=== PATIENT | female | born 1965 | race Hispanic/Latino ===

== ENCOUNTER → 2018-10-23 | Day surgery (SDC) | payer OTHER ==
[~2018-10-23] MED LIST: FENTANYL CITRATE/PF 100MCG/2 ML INJ ONE; LOSARTAN-HCTZ1 EACH PO; MIDAZOLAM HCL 2 MG/2 ML VIAL ONE; PROPOFOL IV EMULSION 10 MG/ML 50 ML VIAL ONE; TRAZODONE HCL50 MG PO
--- OUTSIDE RECORDS SUMMARY | 2018-10-23 05:53 | XMS REPORT ---
Author Author [facility] Organization [employer] Address Unknown Phone Unavailable Care Team Providers Care Project Builder Name Role Phone [facility] Unavailable Allergies, Adverse Reactions, Alerts Substance Reaction Event Type N.K.D.A. Info Not Available Non Drug Allergy Encounters Encounter Location Date [facility] Apr 09, 2014 Problems Problem Type Condition ICD-9 Code Onset Dates Condition Status Problem Pre-syncope 780.2 Active Problem Palpitations 785.1 Active Problem Chest Pain 786.50 Active Assessment Palpitations 785.1 Active Assessment Chest Pain 786.50 Active Assessment Pre-syncope 780.2 Active Medications Medication Code System Code Instructions Start Date End Date Status Dosage leflunomide MULTUM 01615 10 mg orally once a day Active 1 tab(s) trazodone MULTUM 24622 50 mg orally prn Active 1 tab(s) diclofenac MULTUM 99122 sodium 75 mg orally daily Active 1 tab(s) Social History Social History Element Qualifiers Date Reported Caffeine: . coffee daily 3-4cups Apr 09, 2014 Exercise: none. Apr 09, 2014 Recreational drug use: no. Apr 09, 2014 Chewing tobacco: no. Apr 09, 2014 Tobacco Use: . Status: Never Smoker Apr 09, 2014 Alcohol: socially. Liquor, Beer, Wine Apr 09, 2014 Occupation: . [employer] Apr 09, 2014 Family history Qualifier Description Comment Date Reported Father Comment not available Apr 09, 2014 Mother Comment not available Apr 09, 2014 Sibling 1 Comment not available Apr 09, 2014 Vital Signs Date/Time: Apr 09, 2014 Blood Pressure Systolic 138 mm Hg Height 67 in Blood Pressure Diastolic 98 mm Hg Summary Purpose [employer] Submission
--- OUTSIDE RECORDS SUMMARY | 2018-10-23 05:53 | XMS REPORT | Summary of Care ---
Author Author [facility] [place] [facility] [place] Address Unknown Phone Unavailable Encounter HQ Encntr_alias(FIN) [id number] Date(s): 03/31/16 - 03/31/16 [facility] [place] [address] [place] [address] [phone] Discharge Disposition: Home or Self Care Attending Physician: Darrel Barrios MD Vital Signs No data available for this section Problem List No data available for this section Allergies, Adverse Reactions, Alerts No data available for this section Medications No data available for this section Results No data available for this section Immunizations No data available for this section Procedures No data available for this section Social History No data available for this section Assessment and Plan No data available for this section
--- OUTSIDE RECORDS SUMMARY | 2018-10-23 05:53 | XMS REPORT | Continuity of Care Document ---
Author Author Michael marcann Organization Interface Address Unknown Phone Unavailable Problems Problem Status Onset Date Classification Date Reported Comments Source COLON / MAC Active 03/07/2018 [facility] M54.9 M54.6 M25.561 Active 02/06/2018 [facility] M54.9 - DORSALGIA, UNSPECIFIED M54.6 - P Active 02/04/2018 [facility] M25.561 - PAIN IN RIGHT KNEE Active 02/04/2018 [facility] Li Pain in right shoulder 11/06/2017 02/07/2018 [facility] Li M75.101 - UNSP ROTATR-CUFF TEAR/RUPTR OF Active 08/10/2017 [facility] M75.101 Active 08/10/2017 [facility] RIGHT SHOULDER Active 08/04/2017 [facility] Li RT KNEE Active 05/27/2017 [facility] Cecille RIGHT ANKLE/HEEL Active 12/07/2016 [facility] Li DX: ACHILLES RUPTURE Active 11/16/2016 [facility] Z00 - ENCNTR FOR GENERAL EXAM W/O CO Active 03/31/2016 [facility] KNEE RT AND CERVICAL LUMBAR Active 08/27/2000 [facility] Cecille M25.521 M25.522 M25.541 M25.542 Active 08/27/[address] [facility] Pre-syncope Active Problem 07/31/2014 [facility] Palpitations Active Problem 07/31/2014 [facility] Chest Pain Active Problem 07/31/2014 [facility] HTN (<span ID="[id number]">Confirmed</span>) Active Problem 03/11/2018 [facility] Arthritis Resolved Problem 03/11/2018 [facility] Li Jamil Body mass index 29.0-29.9, adult(<span ID="[id number]">Confirmed</span>) Active Problem 03/11/2018 [facility] Other intervertebral disc degeneration, thoracic region 01/04/2018 [facility] [place] Stiffness of right shoulder, not elsewhere classified 02/07/2018 [facility] [place] Muscle weakness 02/07/2018 [facility] [place] Abnormal posture 02/07/2018 [facility] [place] UNSP ROTATR-CUFF TEAR/RUPTR OF RIGHT NIKOS Active [facility] Medications Medication Details Route Status Patient Instructions Ordering Provider Order Date Source Sodium Chloride 0.9% IV 1000 mL 1,000 mL, Rate: 25 ml/hr, Infuse over: 40 hr, Route: IV, Dosing Weight 96.818 kg, Total Volume: 1,000, Start date: 03/08/18 11:00:00 CDT, Duration: 30 day, Stop date: 04/07/18 10:59:00 CDT, 2.16, m2 Inactive 03/08/2018 [facility] Calcium Chloride 0.0014 MEQ/ML / Potassium Chloride 0.004 MEQ/ML / Sodium Chloride 0.103 MEQ/ML / Sodium Lactate 0.028 MEQ/ML Injectable Solution 1,000 mL, Rate: 25 ml/hr, Infuse over: 40 hr, Route: IV, Dosing Weight 96.818 kg, Total Volume: 1,000, Start date: 03/08/18 11:00:00 CDT, Duration: 30 day, Stop date: 04/07/18 10:59:00 CDT, 2.16, m2 Inactive 03/08/2018 [place] 200 ACTUAT Albuterol 0.09 MG/ACTUAT Metered Dose Inhaler [ProAir HFA] 2 puff, INHALER, Q4H, PRN for wheezing, # 8.5 gm, 0 Refill(s), Pharmacy: [facility]/pharmacy #[id number] Active 09/10/2017 [facility] benzonatate 200 MG Oral Capsule [Tessalon] 200 mg=1 cap, PO, TID, X 10 day, # 30 cap, 0 Refill(s), Pharmacy: [facility]/pharmacy #[id number] No Longer Active 09/10/2017 [facility] Prednisone 50 MG Oral Tablet 50 mg=1 tab, PO, Daily, X 5 day, # 5 tab, 0 Refill(s), Pharmacy: [facility]/pharmacy #[id number] No Longer Active 09/10/2017 [facility] azithromycin 250 mg oral tablet See Instructions, Take 2 tablets by mouth the first day then 1 tablet by mouth daily on days 2-5., X 5 day, # 6 tab, 0 Refill(s), Pharmacy: [facility]/pharmacy #[id number] No Longer Active 09/10/2017 [facility] Dexamethasone 8 mg, Route: IM, ONCE, Dosing Weight 89.591, kg, Priority: STAT, Start date: 09/10/17 15:04:00 CUSTOMER SERVICES SUPERVISOR, Stop date: 09/10/17 15:04:00 CUSTOMER SERVICES SUPERVISOR Inactive 09/10/2017 [facility] leflunomide 1 tab(s) orally Active 10 mg orally once a day [facility] trazodone 1 tab(s) orally Active 50 mg orally prn [facility] diclofenac 1 tab(s) orally Active sodium 75 mg orally daily [facility] Allergies, Adverse Reactions, Alerts Substance Category Reaction Severity Reaction type Status Date Reported Comments Source N.K.D.A. Adverse Reaction Info Not Available Adverse Reaction Active 04/09/2014 [facility] codeine Assertion Drug allergy Active [facility] Immunizations Immunization Date Given Site Status Last Updated Comments Source Results Order Name Results Value Reference Range Date Interpretation Comments Source Thyroid US Thyroid US PROCEDURE: THYROID ULTRASOUND INDICATION: Nontoxic goiter, unspecified - . COMPARISON: None. TECHNIQUE: Sonographic evaluation of the thyroid gland performed using high resolution B-mode and Doppler. FINDINGS: The right lobe measures 4.8 x 1.7 x 1.7 cm. The left lobe measures 5 x 1.8 x 1.5 cm. The isthmus is normal. There are multiple benign-appearing subcentimeter hypoechoic lesions on both sides. Nodule 1: Location: Inferior left gland Size: 9 x 8 x 9 mm Composition: Mixed cystic and solid (1 point). Echogenicity: Hypoechoic (2 points). Shape: Wider than tall (0 points). Margins: Ill-defined (0 points). Echogenic foci: Absent (0 points). Other: None. ACR TI-RADS Score: TR3 - Mildly suspicious (total 3 points). -- ACR recommendation:=2.5 cm FNA;=1.5 cm f/u in 1, 3, and 5 years; <1.5 cm no f/u or FNA. Nodule 2: Location: Mid left gland Size: 1.4 x 1 x 1.1 cm Composition: Mixed cystic and solid (1 point). Echogenicity: Hypoechoic (2 points). Shape: Wider than tall (0 points). Margins: Ill-defined (0 points). Echogenic foci: Absent (0 points). Other: None. ACR TI-RADS Score: TR3 - Mildly suspicious (total 3 points). -- ACR recommendation:=2.5 cm FNA;=1.5 cm f/u in 1, 3, and 5 years; <1.5 cm no f/u or FNA. IMPRESSION: Nonspecific bilateral thyroid lesions, largest as detailed above. SL: [id number] 07/02/2018 - - Read by: Antelmo Matthews MD Dictated Date/time: 07/02/18 16:00 Electronically Signed by: Antelmo Matthews MD 07/02/18 16:12 FINAL REPORT [facility] Breast Mammo Scrn LISA incl CAD MA Breast Mammo Scrn LISA incl CAD MA BILATERAL DIGITAL SCREENING MAMMOGRAM WITH CAD: 07/02/2018 CLINICAL: Screening Mammogram/Z12.31. Current study was evaluated with a Computer Aided Detection (CAD) system. COMPARISON:Comparison is made to exams dated: 07/05/2010 mammogram and 06/29/2008 mammogram - [facility]. TECHNIQUE: Mammographic views were obtained using digital acquisition. [employer], version 8.1 was utilized for computer aided detection. FINDINGS: There are scattered fibroglandular densities in both breasts. There are benign calcifications in the left breast. There also are post operative findings in both breasts. No suspicious masses, clusters of microcalcifications or areas of architectural distortion are demonstrated within either breast. There has been no significant interval change. IMPRESSION: BENIGN RECOMMENDATION:There is no mammographic evidence of malignancy. A 1 year screening mammogram is recommended.(07/03/2019) Professional services are provided by the [facility]. Aba To D.O., mdl/warren:07/02/2018 14:52:47 Pattern Assembler(s): Nilsa Polo [facility] letter sent: BI-RADS 1/2 Mammogram BI-RADS: 2 Benign 07/02/2018 - - Read by: Aba To DO Dictated Date/time: 07/02/18 14:52 Electronically Signed by: Zuleika Aba Michele DO 07/02/18 14:52 FINAL REPORT [facility] Knee wo contrast MRI Knee wo contrast MRI EXAM: Right knee wo contrast MRI INDICATION: M25.561 Pain in right knee - M25.561 Pain in right knee COMPARISON: Plain films of the bilateral knees from 01/29/2014 TECHNIQUE: Multiplanar, multisequence magnetic resonance imaging of the right knee was performed without the administration of intravenous gadolinium contrast. FINDINGS: Intercondylar notch: Anterior cruciate ligament and posterior cruciate ligament are intact. Medial compartment: Mild intrasubstance degeneration of the medial meniscus posterior body is seen without discrete tear. No focal chondral defect is present. Medial collateral ligament is intact. Lateral compartment: No meniscal tear or chondral defect is seen. Lateral collateral ligament complex is intact. Posterolateral corner structures are intact. Patellofemoral compartment: Diffuse moderate to high-grade partial-thickness cartilage fissures throughout the lateral patellar facet and patellar apex are seen with mild underlying cystic changes along the lateral patellar facet. Low- grade chondrosis along the apex of the trochlea is seen. Lateral patellar tilt is noted. Tibial tubercle-trochlear groove distance of 1.4 cm is noted. The medial and lateral patellofemoral retinaculum are intact. Extensor mechanism: Quadriceps and patellar tendons are intact. Other findings: Physiologic joint fluid is seen. No acute bony fracture or stress-related marrow edema is present. IMPRESSION: 1. 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 2. Mild intrasubstance degeneration of the medial meniscus posterior body without discrete tear. SL: CARIN 02/08/2018 - - Read by: Bay Pryor MD Dictated Date/time: 02/08/18 15:26 Electronically Signed by: Bay Pryor MD 02/08/18 15:36 FINAL REPORT [facility] Spine Thoracic wo contrast MRI Spine Thoracic wo contrast MRI Patient Name: NILTON PHILLIPS : 1965; Age: 52 years y/o Female MR: [id number] Study: Spine Thoracic wo contrast MRI 02/08/2018 12:26 PM CDT CLINICAL INDICATION: M54.6 Pain in thoracic spine - back pain that radiates to the right scapula. COMPARISON: None TECHNIQUE: Multiplanar and multisequence MR imaging of the thoracic spine without IV contrast. FINDINGS: ALIGNMENT AND GENERAL SURVEY: Localizer sequence demonstrates anterior cervical fusion changes of C5-C7. Normal alignment of the thoracic spine. The bone marrow is normal for the patient's age. No fractures or compression deformities. The thoracic spine posterior elements are normal. The costovertebral junctions are unremarkable. SPINAL CORD: The thoracic spine spinal cord is normal in size and signal. The CSF space is unremarkable. The nonvisualized conus medullaris terminates below the T12 level. DISC SPACES: Mild disc desiccation at multiple levels. Minimal disc bulge at T6- T7. No significant spinal canal or foraminal stenosis. IMPRESSION: Minimal degenerative changes of the thoracic spine. SL: [id number] 02/08/2018 - - Read by: Yun Shannon MD Dictated Date/time: 02/08/18 14:37 Electronically Signed by: Yun Shannon MD 02/08/18 14:[address] [facility] thoracic 3 views DX Spine thoracic 3 views DX Exam: Thoracic spine x-ray, 3 views Reason for Exam: - M54.6 Pain in thoracic spine Comparison Exam: Chest x-ray 09/10/2017 Discussion: Vertebral body heights are maintained. Mild multilevel degenerative disc disease seen within the thoracic spine. Patient is status post anterior cervical fusion within the lower cervical spine. No suspicious osteoblastic or osteolytic lesions. No spondylolisthesis or scoliosis identified. Note that a thoracic spine x-ray cannot rule out ligamentous injuries or spinal cord abnormalities. The visualized portions of the mediastinum are unremarkable. Impression: 1. Vertebral body heights are maintained. Mild multilevel degenerative disc disease seen within the thoracic spine. 12/25/2017 - - Read by: Abhishek Jesus MD Dictated Date/time: 12/26/17 10:06 Electronically Signed by: Abhishek Jesus MD 12/26/17 10:09 FINAL REPORT [facility] Chest 2 views DX Chest 2 views DX Clinical Indication: - cough, fever Comparison: Comparison is made to chest radiograph examination dated 05/21/2017. FINDINGS: The cardiomediastinal silhouette is within normal limits for appearance. No focal pulmonary consolidation, pneumothorax or pleural effusion. Midline trachea. The thoracic spine appears intact. Partial visualization of spinal fusion hardware over the lower cervical spine. Surgical clips identified over the right upper abdominal quadrant. IMPRESSION: 1. No acute intrathoracic abnormality. No focal pulmonary consolidation. SL: [id number] 09/10/2017 - - Read by: Rich Duncan MD Dictated Date/time: 09/10/17 15:04 Electronically Signed by: Rich Duncan MD 09/10/17 15:04 FINAL REPORT [facility] Shoulder wo contrast MRI Shoulder wo contrast MRI MRI of the RIGHT shoulder INDICATION: Fall. Right shoulder pain. COMPARISON: No prior studies available for comparison. TECHNIQUE: Axial, oblique coronal, and oblique sagittal MR images of the shoulder. IV contrast: None. FINDINGS: Motion degraded study. ROTATOR CUFF AND ASSOCIATED STRUCTURES Rotator cuff: There is thickening and heterogeneity of the subscapularis tendon. This very low-grade interstitial tearing. There is also a tear of the transverse ligament component of the subscapularis insertion. The supraspinatus, infraspinatus, and teres minor tendons appear intact. Bursa: There is a mild amount of subacromial-subdeltoid bursal fluid Musculature: There is no muscular tear, contusion, or atrophy. Acromioclavicular joint: There are mild degenerative changes of the acromioclavicular joint, with capsular hypertrophy. A type 2 acromion configuration is noted. There is mild lateral acromial downsloping. OSSEOUS STRUCTURES There are no fractures or regions of abnormal bone marrow signal intensity. LONG BICIPITAL TENDON There is a medial biceps tendon dislocation. Bicipital tendon is located outside of the bicipital groove and appears to be located along the lesser tubercle. This is likely related to the aforementioned transverse ligament tear. GLENOHUMERAL JOINT Joint fluid: There is no glenohumeral joint effusion. Cartilage and Bone: No focal hyaline cartilage defects are noted. Labrum: Evaluation of labral tears is limited without intra-articular contrast. There is degenerative tearing of the labrum, more focally involving the anterior labrum. Other support structures: No capsular or ligamentous abnormality is seen. IMPRESSION: 1. Moderate tendinosis of the subscapularis tendon with a very low-grade interstitial tear. 2. Tear of the transverse ligament with associated medial biceps tendon dislocation. Biceps tendon is currently located on the lesser tuberosity. 3. Mild AC joint arthrosis with mild subacromial-subdeltoid bursitis. 4. Degenerative labral tearing, more focally along the anterior labrum. SL: [id number] 08/22/2017 - - Read by: Chema Son MD Dictated Date/time: 08/22/17 13:32 Electronically Signed by: Chema Son MD 08/22/17 13:40 FINAL REPORT [facility] Chest 2 views DX Chest 2 views DX PROCEDURE: Chest Radiograph. Clinical Indication: Cough. Comparison: Chest radiograph 03/31/2016. FINDINGS: The chest shows normal lung volumes without interstitial or airspace opacities, pleural effusions or pneumothorax. The heart size and pulmonary vasculature are normal. The trachea is midline. There are no clinically significant osseous abnormalities noted. The patient has had previous cervical spinal fusion. IMPRESSION: 1. No chest radiographic evidence of acute cardiopulmonary disease. SL:[id number] 05/21/2017 - - Read by: Beny Alfonso MD Dictated Date/time: 05/21/17 18:04 Electronically Signed by: Beny Alfonso MD 05/21/17 18:05 FINAL REPORT [facility] Ankle wo contrast MRI Ankle wo contrast MRI MRI RIGHT ANKLE WITHOUT CONTRAST HISTORY: ; ACHILLES FRACTURE RT ANKLE - Pt had Achilles tendon repair in Mar 2016, pain persisting since then, difficulty walking and bearing weight on right foot; 51-year-old female reports right heel pain, swelling, and weakness posteriorly for approximately 7 months, history of Achilles surgery, pain with ambulation COMPARISON: None available. FINDINGS: Orthopedic soft tissue anchors are noted within the posterior calcaneus at site of Achilles tendon insertion compatible with prior Achilles repair. The Achilles insertion is considerably thickened, measuring up to 14 mm AP compatible with moderate insertional tendinopathy. There is trace abnormal intratendinous signal. No Achilles tear is seen. No retrocalcaneal bursitis or calcaneal bone marrow edema. There is mild soft tissue inflammatory signal surrounding the distal Achilles myotendinous junction compatible with low to moderate grade myotendinous junction strain (sagittal series 3 images 7-10). Developing intraosseous ganglion cyst is noted in the body of the calcaneus at the base of the sinus Tarsi. There is a small subtalar joint effusion. There is also a small degenerative intraosseous ganglion in the distal fibula. No other osseous abnormalities are seen. There is mild common peroneal tenosynovitis. No other tendon abnormalities are seen. IMPRESSION: 1. Changes of prior Achilles insertion repair. 2. Marked thickening and mild abnormal signal of the Achilles insertion compatible with moderate insertional tendinopathy. 3. Mild soft tissue inflammatory signal about the distal Achilles myotendinous junction compatible with low to moderate grade MTJ strain. 4. Mild common peroneal tenosynovitis. 5. Small degenerative intraosseous ganglion cysts in the calcaneus and distal fibula. SL: JONEL 11/17/2016 - - Read by: Manohar Mack MD Dictated Date/time: 11/17/16 15:29 Electronically Signed by: Manohar Mack MD 11/17/16 15:37 FINAL REPORT [facility] Hand 2 views Bilateral DX Hand 2 views Bilateral DX EXAMINATION: Bilateral handsseries REASON FOR EXAMINATION: Pain COMPARISON: 01/29/2014 FINDINGS: 2 views of the each of bilateral hands are submitted for interpretation. There is no fracture or dislocation. The bones are well- mineralized. There is been no significant interval change with a cyst noted in the left lunate and mild negative ulnar variance bilaterally. Mild radiocarpal degenerative changes are again noted with joint space narrowing bilaterally. No evidence of erosion or significant soft tissue swelling. IMPRESSION: 1. Stable exam with left lunate cyst and mild radiocarpal degenerative change. No evidence of acute bony abnormality. 10/19/2016 - - Read by: Patrick Flaherty MD Dictated Date/time: 10/19/16 11:06 Electronically Signed by: Patrick Flaherty MD 10/19/16 11:09 FINAL REPORT [facility] Elbow 2 views Bilateral DX Elbow 2 views Bilateral DX EXAM: Elbow 2 views Bilateral DX HISTORY: Pain COMPARISON: None AP and lateral views of both elbows. No fracture or dislocation is seen. There is no evidence of joint effusion or radiographically apparent soft tissue swelling or degenerative change. IMPRESSION: No acute abnormality. 10/19/2016 - - Read by: Dexter Thayer MD Dictated Date/time: 10/19/16 12:34 Electronically Signed by: Dexter Thayer MD 10/19/16 12:34 FINAL REPORT [facility] Chest 2 views DX Chest 2 views DX Exam: Two-view chest x-ray Reason for Exam: Z01.818 Encounter for other preprocedural examination Comparison Exam: None Discussion: Cardiomediastinal silhouette is within normal limits. Both hemidiaphragms well visualized. No pulmonary edema or pleural effusions. No focal lung consolidations. Trachea is midline. No acute bony abnormalities. Postsurgical changes seen within the cervicothoracic junction. Impression: 1. No acute cardiopulmonary abnormalities. 03/31/2016 - - Read by: Abhishek Jesus MD Dictated Date/time: 03/31/16 12:31 Electronically Signed by: Abhishek Jesus MD 03/31/16 12:32 FINAL REPORT [facility] Vital Signs Vital Sign Value Date Comments Source Systolic (mm Hg) 126 03/08/2018 [facility] Diastolic (mm Hg) 97 03/08/2018 [facility] Respitory Rate 15 03/08/2018 [facility] Systolic (mm Hg) 97 03/08/2018 [facility] Diastolic (mm Hg) 67 03/08/2018 [facility] Respitory Rate 9 03/08/2018 [facility] Respitory Rate 16 03/08/2018 [facility] Systolic (mm Hg) 131 03/08/2018 [facility] Diastolic (mm Hg) 80 03/08/2018 [facility] BMI Calculated 33.43 03/07/2018 [facility] Weight 96.818 03/07/2018 [facility] Height 170.18 cm 03/07/2018 [facility] BMI Calculated 30.93 09/10/2017 [facility] Weight 89.591 09/10/2017 [facility] Height 170.18 cm 09/10/2017 [facility] Temperature Oral (F) 100.5 F 09/10/2017 [facility] Heart Rate 90 09/10/2017 [facility] Respitory Rate 18 09/10/2017 [facility] Systolic (mm Hg) 125 09/10/2017 [facility] Diastolic (mm Hg) 85 09/10/2017 [facility] Systolic (mm Hg) 138 04/09/2014 [facility] Height 67 04/09/2014 [facility] Diastolic (mm Hg) 98 04/09/2014 [facility] Encounters Location Location Details Encounter Type Encounter Number Reason For Visit Attending Provider ADM Date DC Date Status Source [facility] CVCP [place] [id number] 04/09/2014 04/09/2014 [facility] - [place] [facility] [id number] Darrel Barrios 03/31/2016 04/01/2016 [facility] [place] [facility] Outpatient [id number] Shira Yesenia 10/19/2016 10/20/2016 [facility] Outpatient [id number] Holden Medellin 11/17/2016 11/18/2016 [facility] Outpatient [id number] SOPHIE SHEA 12/22/2016 Active [facility] [place] [facility] Patients [id number] Holden Medellin 01/18/2017 02/17/2017 [facility] [place] [facility] [place] [facility] [id number] Holden Medellin 02/19/2017 03/21/2017 [facility] [place] [facility] [place] [facility] [id number] Holden Medellin 03/22/2017 04/21/2017 [facility] [place] Outpatient [id number] TOMAS SAMPSON 05/21/2017 Active [facility] Outpatient [id number] Liza Haskins 08/22/2017 08/23/2017 [facility] Outpatient [id number] DESI PONCE- [place] 09/10/2017 [facility] Outpatient [id number] Desi Ponce-[place] 09/10/2017 09/11/2017 [facility] [place] [facility] [id number] Nisha Garnettes[place] 10/02/2017 11/01/2017 [facility] [place] [facility] [place] [facility] [id number] Nisha Christopher[place] 12/05/2017 01/04/2018 [facility] [place] [facility] Outpatient Imaging - [place] [facility] [id number] Liza Haskins 12/25/2017 12/26/2017 [facility] [place] [facility] Outpatient [id number] Nisha Garnettes[place] 02/08/2018 02/09/2018 [facility] Outpatient [id number] Patricia Vazquez 03/08/2018 03/08/2018 [facility] Procedures Procedure Code Date Perfomer Comments Source Abdominoplasty [id number] [facility] Achilles tendon repair [id number] [facility] Bilateral breast implants [id number] [facility] Cervical spinal fusion [id number] [facility] Cholecystectomy [id number] [facility] History of bilateral removal of breast implants [id number] [facility] Rhinoplasty [id number] [facility] Suspension of bladder [id number] [facility] TMJ - Temporomandibular joint operation [id number] [facility]
--- OUTSIDE RECORDS SUMMARY | 2018-10-23 05:54 | XMS REPORT | Summary of Care ---
Author Author [facility] [place] Organization [facility] [place] Address Unknown Phone Unavailable Encounter HQ Encntr_mary(FIN) [id number] Date(s): 12/25/17 - 12/25/17 [facility] [place] [address] [place] [address] [phone] Discharge Disposition: Home or Self Care Attending Physician: Liza Haskins MD Vital Signs No data available for this section Problem List Condition Effective Dates Status Health Status Informant HTN Active (hypertension)(Confi rmed) Arthritis(Confirmed) Resolved Body mass index Active (BMI) 29.0-29.9, adult(Confirmed) Allergies, Adverse Reactions, Alerts Substance Reaction Severity Status codeine Active Medications No data available for this section Results No data available for this section Immunizations No data available for this section Procedures No data available for this section Social History Social History Type Response Smoking Status Never smoker; Exposure to Tobacco Smoke None; Cigarette Smoking Last 365 Days No; Reg Smoking Cessation Counseling No entered on: 09/10/17 Assessment and Plan No data available for this section
--- OUTSIDE RECORDS SUMMARY | 2018-10-23 05:54 | XMS REPORT | Summary of Care ---
Author Author [facility] Organization [facility] Address Unknown Phone Unavailable Encounter HQ Lashell(KYLIE) [id number] Date(s): 03/08/18 - 03/08/18 [facility] [address] [place] [address]- [facility] [phone] Discharge Disposition: Home or Self Care Attending Physician: Patricia Vazquez MD Referring Physician: Patricia Vazquez MD Vital Signs 1 2 3 Most recent to oldest [Reference Range]: 170.18 cm (03/07/18 3:31 PM) Height 126/97 mmHg (03/08/18 1:45 PM) 97/67 mmHg (03/08/18 1:25 PM) 131/80 mmHg (03/08/18 12:00 PM) Blood Pressure [90-140/60-90 mmHg] 15 BRMIN (03/08/18 1:45 PM) 9 BRMIN *LOW* (03/08/18 1:25 PM) 16 BRMIN (03/08/18 12:00 PM) Respiratory Rate [14-20 BRMIN] 96.818 kg (03/07/18 3:31 PM) Weight 33.43 m2 (03/07/18 3:31 PM) Body Mass Index Problem List Condition Effective Dates Status Health Status Informant HTN Active (hypertension)(Confi rmed) Arthritis(Confirmed) Resolved Body mass index Active (BMI) 29.0-29.9, adult(Confirmed) Allergies, Adverse Reactions, Alerts Substance Reaction Severity Status codeine Active Medications Lactated Ringers Injection IV 1000 mL 1,000 mL, Rate: 25 ml/hr, Infuse over: 40 hr, Route: IV, Dosing Weight 96.818 kg , Total Volume: 1,000, Start date: 03/08/18 11:00:00 CDT, Duration: 30 day, Stop date: 04/07/18 10:59:00 CDT, 2.16, m2 Start Date: 03/08/18 Stop Date: 03/08/18 Status: Discontinued Sodium Chloride 0.9% IV 1000 mL 1,000 mL, Rate: 25 ml/hr, Infuse over: 40 hr, Route: IV, Dosing Weight 96.818 kg , Total Volume: 1,000, Start date: 03/08/18 11:00:00 CDT, Duration: 30 day, Stop date: 04/07/18 10:59:00 CDT, 2.16, m2 Start Date: 03/08/18 Stop Date: 03/08/18 Status: Discontinued Results No data available for this section Immunizations No data available for this section Procedures Procedure Date Related Diagnosis Body Site Status Abdominoplasty Completed Achilles tendon repair Completed Bilateral breast implants Completed Cervical spinal fusion Completed Cholecystectomy Completed History of bilateral removal of breast Completed implants Rhinoplasty Completed Suspension of bladder Completed TMJ - Temporomandibular joint operation Completed Social History Social History Type Response Smoking Status Never smoker; Exposure to Tobacco Smoke None; Cigarette Smoking Last 365 Days No; Reg Smoking Cessation Counseling No entered on: 03/07/18 Assessment and Plan No data available for this section
--- OUTSIDE RECORDS SUMMARY | 2018-10-23 05:54 | XMS REPORT | Summary of Care ---
Author Author [facility] Organization [facility] Address Unknown Phone Unavailable Encounter HQ Christiana_mary(FIN) [id number] Date(s): 08/22/17 - 08/22/17 [facility] [address] [place] [address]- S [phone] Discharge Disposition: Home or Self Care Attending Physician: Liza Haskins MD Admitting Physician: Liza Haskins MD Referring Physician: Liza Haskins MD Vital Signs No [...] Days No; Reg Smoking Cessation Counseling No Assessment and Plan No data available for this section
--- OUTSIDE RECORDS SUMMARY | 2018-10-23 05:54 | XMS REPORT | Summary of Care ---
Author Author [facility] Address Unknown Phone Unavailable Encounter HQ Encntr_alias(FIN) [id number] Date(s): 02/19/17 - 03/20/17 [facility] Discharge Disposition: Home or Self Care Attending Physician: Holden Medellin DPLalita Vital Signs No data available for this section Problem List Condition Effective Dates Status Health Status Informant Arthritis(Confirmed) Resolved Body mass index Active (BMI) [...]
--- OUTSIDE RECORDS SUMMARY | 2018-10-23 05:54 | XMS REPORT | Summary of Care ---
Author Author [facility] [place] Organization [facility] [place] Address Unknown Phone Unavailable Encounter HQ Encntr_alijayy(FIN) [id number] Date(s): 12/25/17 - 12/25/17 [facility] [place] [address] [place] [address]- [phone] Encounter Diagnosis Other intervertebral disc degeneration, thoracic region (Final) - Discharge Disposition: Home or Self Care Attending [...]
--- OUTSIDE RECORDS SUMMARY | 2018-10-23 05:54 | XMS REPORT | Summary of Care ---
Author Author [facility] Address Unknown Phone Unavailable Encounter HQ Encntr_alijayy(FIN) [id number] Date(s): 03/22/17 - 04/20/17 [facility] Discharge Disposition: Home or Self Care [...]
--- OUTSIDE RECORDS SUMMARY | 2018-10-23 05:54 | XMS REPORT | Summary of Care ---
Author Author [facility] [place] Organization [facility] Address Unknown Phone Unavailable Encounter HQ Lashell(FIN) [id number] Date(s): 09/10/17 - 09/10/17 [facility] [place] [address] [facility] [address] [phone] Discharge Disposition: Home or Self Care Attending Physician: Desi Quiros MD Vital Signs Most recent to 1 oldest [Reference Range]: Height 170.18 cm (09/10/17 1:59 PM) Temperature Oral 100.5 DegF [96.4-99.1 DegF] *HI* (09/10/17 1:59 PM) Blood Pressure 125/85 mmHg [90-140/60-90 mmHg] (09/10/17 1:59 PM) Respiratory Rate 18 BRMIN [14-20 BRMIN] (09/10/17 1:59 PM) Peripheral Pulse 90 bpm Rate [60-100 bpm] (09/10/17 1:59 PM) Weight 89.591 kg (09/10/17 1:59 PM) Body Mass Index 30.93 m2 (09/10/17 1:59 PM) Problem List Condition Effective Dates Status Health Status Informant HTN Active (hypertension)(Confi rmed) Arthritis(Confirmed) Resolved Body mass index Active (BMI) 29.0-29.9, adult(Confirmed) Allergies, Adverse Reactions, Alerts Substance Reaction Severity Status codeine Active Medications azithromycin 250 mg oral tablet See Instructions, Take 2 tablets by mouth the first day then 1 tablet by mouth d aily on days 2-5., X 5 day, # 6 tab, 0 Refill(s), Pharmacy: [facility]/pharmacy #[id number] Start Date: 09/10/17 Stop Date: 09/15/17 Status: Completed dexamethasone 8 mg, Route: IM, ONCE, Dosing Weight 89.591, kg, Priority: STAT, Start date: 15:04:00 THREAD SPOOLER, Stop date: 09/10/17 15:04:00 THREAD SPOOLER Start Date: 09/10/17 Stop Date: 09/10/17 Status: Completed predniSONE 50 mg oral tablet 50 mg=1 tab, PO, Daily, X 5 day, # 5 tab, 0 Refill(s), Pharmacy: [facility]/pharmacy #[id number] Start Date: 09/10/17 Stop Date: 09/15/17 Status: Completed ProAir HFA 90 mcg/inh inhalation aerosol with adapter 2 puff, INHALER, Q4H, PRN for wheezing, # 8.5 gm, 0 Refill(s), Pharmacy: [facility] #[id number] Start Date: 09/10/17 Status: Ordered Tessalon 200 mg oral capsule 200 mg=1 cap, PO, TID, X 10 day, # 30 cap, 0 Refill(s), Pharmacy: [facility]/pharmacy # [id number] Start Date: 09/10/17 Stop Date: 09/20/17 Status: Completed Results No data available for this section [...]
--- OUTSIDE RECORDS SUMMARY | 2018-10-23 05:54 | XMS REPORT | Summary of Care ---
Author Author [facility] Organization [facility] Address Unknown Phone Unavailable Encounter HQ Encntr_alijayy(KYLIE) [id number] Date(s): 11/17/16 - 11/17/16 [facility] [address] [place] [address]- [phone] Discharge Disposition: Home or Self Care Attending Physician: Holden Medellin DPM Admitting Physician: Holden Medellin DPM Referring Physician: Holden Medellin DPM Vital Signs No data available for this [...]
--- OUTSIDE RECORDS SUMMARY | 2018-10-23 05:54 | XMS REPORT | Summary of Care ---
Author Author [facility] Organization [facility] Address [address] [place] [address] Phone Unavailable Care Team Providers Care Skid Worker Name Role Phone AURY LYNNE M.D. 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 Active TraZODone HCl - 100 MG Oral Tablet TAKE 1 TABLET AT BEDTIME. * Refills: 0 Active TraMADol HCl - 50 MG Oral Tablet TAKE 1 TABLET 3 TIMES DAILY. * Quantity: 60 Refills: 0 Active Duexis 800-26.6 MG Oral Tablet TAKE 1 TABLET 3 times daily PRN MDD:3 * Quantity: 90 Refills: 3 AURY LYNNE M.D. * Start : 11-Oct-2017 Active Allergies and Adverse Reactions Name Dates Details Codeine Derivatives (Allergy) Status: Active Past Medical History Name Dates Details History of gallbladder disease (V12.79, Z87.19) Status: Resolved History of hypertension (V12.59, Z86.79) Status: Resolved Procedures Procedure Dates Details History of neck surgery Completed History of achilles tendon surgery Completed History of rhinoplasty Completed Immunization Name Dates Details Immunizations not documented Family History Name Dates Details Family history of lung cancer (V16.1, Z80.1) Status: Active Name Dates Details Family history of hepatic cirrhosis (V18.59, Z83.79) Status: Active Name Dates Details Family history of suicide (V17.0, Z81.8) Status: Active Social History Name Dates Details - Status: Name Dates Details Never smoker Vital Signs Date Test Result Details [id number] BP Systolic 120 mm[Hg] Status: Comments: Location: LUE; Position: Sitting BP Diastolic 86 mm[Hg] Status: Comments: Location: LUE; Position: Sitting Height 67 in Status: Weight 200 lb Status: Body Mass Index Calculated 31.32 kg/m2 Status: Body Surface Area Calculated 2.02 m2 Status: Heart Rate 77 /min Status: Comments: Location: L Radial; Results Date Description Value Details Results not documented Plan of Care Name Dates Details Planned Observations Planned Goals not documented Planned Encounters Appointment; AURY LYNNE M.D. On: 28-Jan-2018 10:15 Instructions Name Dates Details Instructions not documented Encounters Appointment; AURY LYNNE M.D. Encounter Diagnosis: Problem not documented On: 26-Sep-2017 14:00 Appointment; AURY LYNNE M.D. Encounter Diagnosis: Problem not documented On: 29-Oct-2017 15:00
--- OUTSIDE RECORDS SUMMARY | 2018-10-23 05:54 | XMS REPORT | Summary of Care ---
Author Author [facility] Organization [facility] Address Unknown Phone Unavailable Encounter HQ Encntr_alijayy(FIN) [id number] Date(s): 10/19/16 - 10/19/[address] [address]- Discharge Disposition: Home or Self Care Attending Physician: Shira Patterson MD Admitting Physician: Shira Patterson MD Vital Signs No data available for [...]
--- OUTSIDE RECORDS SUMMARY | 2018-10-23 05:54 | XMS REPORT | Summary of Care ---
Author Author [facility] Address Unknown Phone Unavailable Encounter HQ Christiana_mary(FIN) [id number] Date(s): 10/02/17 - 10/31/17 [facility] Encounter Diagnosis Pain in right shoulder (Final) - 11/05/17 Stiffness of right shoulder, not elsewhere classified (Final) - Muscle weakness (generalized) (Final) - Abnormal posture (Final) - Discharge Disposition: Home or Self Care Attending Physician: Nisha Reece MD Vital Signs No data available for [...]
--- OUTSIDE RECORDS SUMMARY | 2018-10-23 05:54 | XMS REPORT | Summary of Care ---
Author Author [facility] Address Unknown Phone Unavailable Encounter HQ Encntr_mary(FIN) [id number] Date(s): 12/05/17 - 01/03/18 [facility] Discharge Disposition: Home or Self Care Attending [...]
--- OUTSIDE RECORDS SUMMARY | 2018-10-23 05:54 | XMS REPORT | Summary of Care ---
Author Author [facility] Organization [facility] Address Unknown Phone Unavailable Encounter HQ Christiana_mary(FIN) [id number] Date(s): 02/08/18 - 02/08/18 [facility] [address] [place] [address]- S [phone] Discharge Disposition: Home or Self Care Attending Physician: Nisha Reece MD Referring Physician: Nisha Reece MD Vital Signs No [...]
--- OUTSIDE RECORDS SUMMARY | 2018-10-23 05:54 | XMS REPORT | Summary of Care ---
Author Author [facility] Address Unknown Phone Unavailable Encounter HQ Encntr_alijayy(FIN) [id number] Date(s): 12/05/17 - 01/03/18 [facility] Discharge Disposition: Home or Self Care Attending [...]
[2018-10-23 09:22] VITALS: BP 103/72
== END | disposition home or self-care (01) ==
LOC: OR 05:51
PROVIDERS: ATTEND Internal Medicine Gastroenterology
DX: Z12.11 Encounter for screening for malignant neoplasm of colon (principal); D12.5 Benign neoplasm of sigmoid colon; K57.30 Diverticulosis of large intestine without perforation or abscess without bleeding; K64.8 Other hemorrhoids; K64.4 Residual hemorrhoidal skin tags; I10 Essential (primary) hypertension; Z88.6 Allergy status to analgesic agent; Z01.810 Encounter for preprocedural cardiovascular examination
CPT/HCPCS: 45385; 93005; J2250; J2704; 45378

== ENCOUNTER 2019-06-14 12:39 | Emergency (ER) | payer OTHER ==
[~2019-06-14] VITALS: Ht 170.2 cm; Wt 90.8 kg
[~2019-06-14 12:39] MED LIST changes: -FENTANYL CITRATE/PF 100MCG/2 ML INJ ONE; -MIDAZOLAM HCL 2 MG/2 ML VIAL ONE; -PROPOFOL IV EMULSION 10 MG/ML 50 ML VIAL ONE
--- OUTSIDE RECORDS SUMMARY | 2019-06-14 12:42 | XMS REPORT ---
Author Author [facility] Address Unknown Phone Unavailable Care Team Providers Care Unix Manager Name Role Phone Unavailable Unavailable Problems This patient has no known problems. Allergies, Adverse Reactions, Alerts This patient has no known allergies or adverse reactions. Medications This patient has no known medications.
[2019-06-14] MEDS ORDERED: MORPHINE SULFATE 2 MG/ML SYR 1ML IV STA (13:05)
[2019-06-14] MEDS ORDERED: MECLIZINE HCL 12.5 MG TAB PO ONE (13:15)
[2019-06-14] MEDS ORDERED: ONDANSETRON HCL 4 MG ORAL DISINTEGRATING TAB PO ONE (13:15)
--- NOTE | 2019-06-14 13:33 | Diagnostic Imaging Report ---
CT BRAIN [facility] HISTORY: Headache, dizziness COMPARISON: None. TECHNIQUE: Noncontrast axial scans were obtained from skull base to the vertex. Coronal and sagittal reconstructions obtained from the axial data. One or more of the following dose reduction techniques were used: Automated exposure control, adjustment of the mA and/or kV according to patient size, and/or utilization of iterative reconstruction technique. DISCUSSION: Scalp/Skull: Unremarkable. Brain sulci: Appropriate for patient's age. Ventricles: Normal in size and configuration. No hydrocephalus. Extra-axial spaces: No masses or fluid collections. Mild carotid siphon calcifications. Parenchyma: Incidental subcentimeter pineal cyst is present. Otherwise, no mass, hemorrhage, or large vascular territory acute infarct. Dural sinuses: No abnormal densities. Sellar/Suprasellar region: Intact. Skull base: Intact. Incidental findings: None. IMPRESSION: No acute intracranial abnormalities. Signed by: Dr. Feliberto Padilla M.D. on 06/14/2019 1:30 PM
[2019-06-14] MEDS ORDERED: MECLIZINE HCL 12.5 MG TAB ONE (13:35)
[2019-06-14] MEDS ORDERED: MORPHINE SULFATE INJ 4 MG/ML INJ 1ML ONE (13:36)
[2019-06-14] MEDS ORDERED: ONDANSETRON HCL INJ 2MG/ML 2ML 2 MG/ML VIAL ONE (13:36)
[2019-06-14] MEDS ORDERED: KETOROLAC TROMETHAMINE 30 MG/ML VIAL IV NR (14:00)
[2019-06-14] MEDS ORDERED: KETOROLAC TROMETHAMINE 30 MG/ML VIAL ONE (14:04)
[2019-06-14 14:49] VITALS: BP 113/68
== END 2019-06-14 15:06 | disposition home or self-care (01) ==
LOC: FSED 12:39
DX: G44.219 Episodic tension-type headache, not intractable (principal); Z88.5 Allergy status to narcotic agent; I10 Essential (primary) hypertension
CPT/HCPCS: 70450; 80048; 80076; 80307; 81003; 81025; 85025; 93005; 96374; 96375; 99284; J1885; J2270 ×2; J2405; J8597; Q0162

== ENCOUNTER → 2019-07-15 | Outpatient (CLI) | payer OTHER ==
[~2019-07-15] MED LIST changes: +GADOBENATE DIMEGLUMINE 1 ML IV ONE; +LORAZEPAM INJ 2 MG/ML VIAL ONE
[2019-07-15 08:43] LABS: BLOOD UREA NITROGEN 15 mg/dL (7-26); BUN/CREATININE RATIO 19 (6-25); CREATININE, SERUM 0.78 mg/dL (0.57-1.11); EST GLOMERULAR FILTRATION RATE > 60 ML/MIN (60-)
--- NOTE | 2019-07-15 10:51 | Diagnostic Imaging Report ---
Examination: MRI BRAIN WOW CONTRAST History: Forgetfulness. Headaches. Lightheadedness. Comparison studies: Head CT performed June 14, 2019 Technique: Pre-contrast: Sagittal T2; axial T1, GRE or SWI, DWI, T2 FLAIR Post-contrast: axial, sagittal and coronal T1. Intravenous contrast: 20 mL MultiHance. Findings: Scalp: No abnormal signal. No masses. Bone marrow: Normal in signal intensity. Brain volume: Adequate for age. No volume loss. Ventricles: Normal in size and configuration. No hydrocephalus. Parenchyma: No abnormal signal intensities. No masses, hemorrhage, acute or chronic vascular insults. Extra-axial spaces: No lesion, fluid collection or hematoma. Enhancement: No abnormal enhancement. Suprasellar and sellar region: No abnormalities. Craniocervical junction: No abnormalities. The foramen magnum is patent. No Chiari malformations. Vessels: Normal flow-voids in the arteries and sinuses. Additional findings:None. IMPRESSION: No new or acute intracranial abnormalities. No change from prior head CT from June 14, 2019 and when accounting for differences in technique. Signed by: Dr. Chiquita Anton M.D. on 07/15/2019 10:47 AM
== END ==
LOC: MRI 07:12
PROVIDERS: ATTEND Student in an Organized Health Care Education/Training Program
DX: H53.9 Unspecified visual disturbance (principal); R29.818 Other symptoms and signs involving the nervous system
CPT/HCPCS: 36415; 70553; 82565; 84520; A9577; J2060

== ENCOUNTER → 2019-07-22 | Outpatient (CLI) | payer OTHER ==
[~2019-07-22] MED LIST changes: -GADOBENATE DIMEGLUMINE 1 ML IV ONE
--- NOTE | 2019-07-22 15:37 | Diagnostic Imaging Report ---
History: Transient neurologic symptoms Comparison studies: None Technique: Cervical MRA: 2-D [id number]-ge-cloryr cervical with 3-D MIP reformats. Intracranial MRA: Axial 3-D [id number]-gb-rirliz intracranial with sagittal, coronal and 3-D MIP reformats. Contrast: None. Findings: Neck MRA: If present, stenosis is calculated utilizing the NASCET method which calculates the degree of stenosis with reference to the normal lumen of the carotid artery distal to the stenosis. Exam is limited by artifacts related to patient motion. Aortic arch: No gross abnormalities Common carotid arteries: Patent, no flow limiting stenosis. Carotid bulbs: No (0%) stenosis by NASCET criteria. Internal carotid arteries: Patent, no flow signal abnormalities. Vertebral arteries: Patent with antegrade flow bilaterally. Evaluation of the left vertebral artery and proximal left V1 segment are limited by artifacts related to patient motion. Focal decreased signal in the left V1 segment may may be related to stenosis or be artifactual. Intracranial MRA: No aneurysm identified in the [place] of [place]. Anterior circulation: Internal carotid arteries: Patent, no flow signal abnormalities. Middle cerebral arteries: Patent, no proximal branch occlusion or stenosis. Anterior cerebral arteries: Patent, no proximal branch occlusion or stenosis. Posterior circulation: Vertebral arteries: Patent, no flow signal abnormalities. Basilar artery: Patent, no flow signal abnormalities. Posterior cerebral arteries: Patent, no proximal branch occlusion or stenosis. Hypoplastic left P1 segment with anatomical variant left TICKET MANAGER origin from the left posterior communicating artery. Anatomical variants: Anterior cerebral arteries: Right A1 segment fenestration. Anterior commuting indicating artery: Patent. Posterior commuting indicating arteries: Hypoplastic right. Left TICKET MANAGER origin. Vertebral arteries: Co-dominant. IMPRESSION: Neck MRA: 1. Limited exam due to motion artifacts. 2. Patent carotid arteries. No (0%) stenosis at the carotid bulbs by NASCET criteria. 3. Possible stenosis versus artifact in the proximal left vertebral artery. Neck CTA may further evaluate. Both vertebral arteries are otherwise patent. Intracranial MRA: 1. No major branch occlusion or stenosis. 2. Anatomical variants as described. Signed by: Dr. Álvaro Nelson M.D. on 07/22/2019 3:34 PM
--- NOTE | 2019-07-22 15:37 | Diagnostic Imaging Report ---
History: Transient neurologic symptoms Comparison studies: None Technique: Cervical MRA: 2-D [id number]-rm-[id number] cervical with 3-D MIP reformats. Intracranial MRA: Axial 3-D [id number] intracranial with sagittal, coronal and 3-D MIP reformats. Contrast: None. Findings: Neck MRA: If present, stenosis is calculated utilizing the NASCET method which calculates the degree of stenosis with reference to the normal lumen of the carotid artery distal to the stenosis. Exam is limited by artifacts related to patient motion. Aortic arch: No gross abnormalities Common carotid arteries: Patent, no flow limiting stenosis. Carotid bulbs: No (0%) stenosis by NASCET criteria. Internal carotid arteries: Patent, no flow signal abnormalities. Vertebral arteries: Patent with antegrade flow bilaterally. Evaluation of the left vertebral artery and proximal left V1 segment are limited by artifacts related to patient motion. Focal decreased signal in the left V1 segment may may be related to stenosis or be artifactual. Intracranial MRA: No aneurysm identified in the [place] of [place]. Anterior circulation: Internal carotid arteries: Patent, no flow signal abnormalities. Middle cerebral arteries: Patent, no proximal branch occlusion or stenosis. Anterior cerebral arteries: Patent, no proximal branch occlusion or stenosis. Posterior circulation: Vertebral arteries: Patent, no flow signal abnormalities. Basilar artery: Patent, no flow signal abnormalities. Posterior cerebral arteries: Patent, no proximal branch occlusion or stenosis. Hypoplastic left P1 segment with anatomical variant left PRODUCT DEVELOPMENT MANAGER origin from the left posterior communicating artery. Anatomical variants: Anterior cerebral arteries: Right A1 segment fenestration. Anterior commuting indicating artery: Patent. Posterior commuting indicating arteries: Hypoplastic right. Left PRODUCT DEVELOPMENT MANAGER origin. Vertebral arteries: Co-dominant. IMPRESSION: Neck MRA: 1. Limited exam due to motion artifacts. 2. Patent carotid arteries. No (0%) stenosis at the carotid bulbs by NASCET criteria. 3. Possible stenosis versus artifact in the proximal left vertebral artery. Neck CTA may further evaluate. Both vertebral arteries are otherwise patent. Intracranial MRA: 1. No major branch occlusion or stenosis. 2. Anatomical variants as described. Signed by: Dr. Álvaro Nelson M.D. on 07/22/2019 3:34 PM
== END ==
LOC: MRI 13:21
PROVIDERS: ATTEND Student in an Organized Health Care Education/Training Program
DX: R29.818 Other symptoms and signs involving the nervous system (principal); H53.9 Unspecified visual disturbance
CPT/HCPCS: 70544; 70547; J2060

== ENCOUNTER 2020-02-13 10:59 | Outpatient (RCR) | payer OTHER ==
[~2020-02-13 10:59] MED LIST changes: -LORAZEPAM INJ 2 MG/ML VIAL ONE
== END 2020-02-24 ==
LOC: PT 10:59
PROVIDERS: ATTEND Orthopaedic Surgery Orthopaedic Trauma
DX: M22.41 Chondromalacia patellae, right knee (principal); M75.51 Bursitis of right shoulder; M76.62 Achilles tendinitis, left leg

== ENCOUNTER 2020-02-13 11:54 | Emergency (ER) | payer OTHER ==
[~2020-02-13] VITALS: Ht 170.2 cm; Wt 90.7 kg
[2020-02-13] MEDS ORDERED: MECLIZINE HCL 12.5 MG TAB PO ONE ×2 (12:00→15:45)
[2020-02-13 12:40] LABS: BASOPHILS % 0.3 % (0.0-1.0); EOSINOPHILS % 0.4 % (0.0-6.0); HEMATOCRIT 42.4 % (34.2-44.1); HEMOGLOBIN 13.7 g/dL (12.0-16.0); LYMPHOCYTES # (AUTO) 1.6 (1.0-3.2); LYMPHOCYTES % 21.9 % (18.0-39.1); MEAN CORPUSCULAR HEMOGLOBIN 28.6 pg (28-32); MEAN CORPUSCULAR HGB CONC 32.3 g/dL (31-35); MEAN CORPUSCULAR VOLUME 88.5 fL (81-99); MONOCYTES # (AUTO) 0.4 (0.2-0.8); MONOCYTES % 5.6 % (4.4-11.3); NEUTROPHILS # (AUTO) 5.2 (2.1-6.9); NEUTROPHILS % 71.5 % (38.7-80.0); PLATELET COUNT 237 x10e3/uL (140-360); RED BLOOD COUNT 4.79 x10e6/uL (3.6-5.1); RED CELL DISTRIBUTION WIDTH 13.4 % (11.7-14.4)
--- NOTE | 2020-02-13 12:50 | Emergency Department Note ---
History of Present Illnes History of Present Illness Chief Complaint: General Medicine Complaints History of Present Illness This is a 54 year old female arrived to the ED with complaints of dizziness that began this morning, patient states is only worsened as it day went on and she was unable to complete physical therapy. Patient was instructed to go to the ED. Patient admits to the symptoms in the past and was diagnosed with vertigo. Chief Complaint Comment PATIENT IN FROM HOME WITH COMPLAINTS OF DIZZINESS AND BEING UNSTEADY ON HER FEET; STATES WAS OFF AND ON ALL MORNING, BUT GOT WORSE WHILE SHE WAS IN PT. PATIENT ALERT AND ORIENTED, RESP EVEN AND NONLABORED, STATES HAS HAD VERTIGO BEFORE, BUT THIS FEELS DIFFERENT Historian: Patient Arrival Mode: Car Onset (how long ago): hour(s) Radiation: Reports non-radiation Severity: mild Onset quality: gradual Duration (how long): hour(s) Timing of current episode: constant Progression: waxing and waning Chronicity: recurrent Context: Denies recent illness, Denies recent surgery, Denies recent immobilization, Denies trauma/injury, Denies new medications, Denies hx of DVT/PE Associated symptoms: Denies confusion, Denies fever/chills, Denies headaches (JUSTIN CAIN, DO) Past Medical/Family History Physician Review I have reviewed the patient's past medical and family history. Any updates have been documented here. (JUSTIN CAIN, ) Past Medical History Recent Fever: No Clinical Suspicion of Infectio: No New/Unexplained Change in Ment: No Past Medical History: Hypertension, Cancer Other Medical History: arthritis colon cancer with polyps removed Past Surgical History: Cholecysctectomy Other Surgery: TMJ Rhinoplasty Breast implants and removal Bladder lift Tummy tuck Achilles Tendon x2 Neck cervical fusion (JUSTIN CAIN, DO) Social History Smoking Cessation: Former smoker (JUSTIN CAIN, DO) Family History Family history of heart diseas: No (JUSTIN CAIN, DO) Other Last Tetanus: 2019 (JUSTIN CAIN, ) Review of Systems Review of Systems Constitutional: Reports as per HPI EENTM: Reports no symptoms Cardiovascular: Reports no symptoms Respiratory: Reports no symptoms Gastrointestinal: Reports no symptoms Genitourinary: Reports no symptoms Musculoskeletal: Reports no symptoms Integumentary: Reports no symptoms Neurological: Reports as per HPI, Reports weakness (dizziness) Psychological: Reports no symptoms Endocrine: Reports no symptoms Hematological/Lymphatic: Reports no symptoms Review of other systems: All other systems negative (JUSTIN CAIN DO) Physical Exam Related Data Allergies: Coded Allergies: codeine (Verified Allergy, Unknown, ITCHING, 02/13/20) Triage Vital Signs Vital Signs Date Time Temp Pulse Resp B/P (MAP) Pulse Ox O2 Delivery O2 Flow Rate FiO2 02/13/20 12:00 96.2 65 18 182/115 100 Vital signs reviewed: Yes (JUSTIN CAIN DO) Physical Exam CONSTITUTIONAL Constitutional: Present well-developed, Present well-nourished HENT HENT: Present normocephalic, Present atraumatic, Present oropharynx clear/moist, Present nose normal HENT L/R: Present left ext ear normal, Present right ext ear normal EYES Eyes: Reports PERRL, Reports conjunctivae normal NECK Neck: Present ROM normal PULMONARY Pulmonary: Present effort normal, Present breath sounds normal CARDIOVASCULAR Cardiovascular: Present regular rhythm, Present heart sounds normal, Present capillary refill normal, Present normal rate GASTROINTESTINAL Abdominal: Present soft, Present nontender, Present bowel sounds normal GENITOURINARY Genitourinary: Present exam deferred SKIN Skin: Present warm, Present dry MUSCULOSKELETAL Musculoskeletal: Present ROM normal NEUROLOGICAL Neurological: Present alert, Present oriented x 3, Present no gross motor or sensory deficits PSYCHOLOGICAL Psychological: Present mood/affect normal, Present judgement normal (JUSTIN CAIN DO) Results Imaging Imaging results reviewed: Yes Impressions [place] [id number] Patient Name: NILTON PHILLIPS MR #: [id number] : 1965 Age/Sex: 54/F Req #: [id number] Adm Physician: Ordered by: JUSTIN CAIN DO Report #: [id number] Location: ER Room/Bed: Procedure: [id number] CT/CTA BRAIN Exam Date: 02/13/20 Exam Time: 1720 REPORT STATUS: Draft History:Headache, dizziness, Comparison studies: MRA of the head and neck 07/22/2019 Technique: Axial images were obtained from the thoracic inlet. Coronal and sagittal images reconstructed from the axial data. Dose modulation, iterative reconstruction, and/or weight based adjustment of the mA/kV was utilized to reduce the radiation dose to as low as reasonably achievable. Intravenous contrast: 100 cc of Omnipaque 300. Findings: Aortic arch and major vessels: Patent. No abnormalities. Common carotid arteries: Patent. No abnormalities. Right internal carotid artery: Patent. No abnormalities. Left internal carotid artery: Patent. No abnormalities. Right vertebral artery: Patent. No abnormalities. Left vertebral artery: Patent. No abnormalities. Basilar artery: Patent. No abnormalities. Posterior cerebral arteries: Patent. No abnormalities. 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 Acom: Patent. Pcoms: Hypoplastic right. Left [employer]STUME [employer]ER origin. Vertebral arteries: Left dominant. And central findings: 1 cm hypodense nodule within the left thyroid lobe does not meet criteria for dedicated imaging follow-up. Prior ACDF of C5-C7. IMPRESSION: Cervical CTA: 1. Normal arterial vasculature. Intracranial CTA: 1. No large branch vessel occlusion, hemodynamically significant stenosis, or aneurysm. 2. Anatomic variants as described above. Dictated By: DEVONTE GOMEZ MD [id number] COPY TO: ~ (CARLOS LANGLEY DO) Procedures 12 Lead ECG Interpretation ECG Interpretation : ECG: ECG 1 Director Electronics: Interpreted by ED physician Rhythm: sinus rhythm QRS axis: normal ST segments normal: Yes T waves normal: Yes Clinical Impression: normal ECG (JUSTIN CAIN DO) Assessment & Plan Medical Decision Making MDM 54 yof with dizziness.CTA ordered to r/o SAH, aneurysm (CARLOS LANGLEY DO) Reassessment Reassessment time: 20:30 Reassessment patient had left the department prior to being given discharge instructions. Findings of the CTA brain and neck conveyed to the patient via phone. (CARLOS LANGLEY DO) Assessment & Plan Final Impression: (1) Dizziness (CARLOS LANGLEY DO) Depart Disposition: HOME, SELF-CARE Last Vital Signs Date Time Temp Pulse Resp B/P (MAP) Pulse Ox O2 Delivery O2 Flow Rate FiO2 02/13/20 12:00 96.2 65 18 182/115 100 (JUSTIN CAIN DO) Home Meds Reported Medications Trazodone Hcl (TRAZODONE HCL) 50 Mg Tablet, 100 MG PO DAILY, #30 TAB 10/22/18 Losartan/Hydrochlorothiazide (LOSARTAN-HCTZ 50-12.5 MG TAB) 1 Each Tablet, 1 TAB PO DAILY 10/22/18 Medications in the ED Meclizine HCl 25 mg ONCE ONCE PO ; Start 02/13/20 at 12:00; Stop 02/13/20 at 12:01; Status DC (JUSTIN CAIN DO) Medications in the ED Meclizine HCl 25 mg ONCE ONCE PO Last administered on 02/13/20at 15:40; Admin Dose 25 MG; Start 02/13/20 at 12:00; Stop 02/13/20 at 12:01; Status DC Meclizine HCl 25 mg ONCE ONCE PO Last administered on 02/13/20at 15:49; Admin Dose 25 MG; Start 02/13/20 at 15:45; Stop 02/13/20 at 15:46; Status DC Sodium Chloride 100 ml @ ud STK-MED ONCE .ROUTE ; Start 02/13/20 at 18:15; Stop 02/13/20 at 18:10; Status DC Iopamidol 74,000 mg STK-MED ONCE INJ ; Start 02/13/20 at 18:15; Stop 02/13/20 at 18:10; Status DC (CARLOS LANGLEY DO) JUSTIN CAIN DO Feb 13, 2020 12:33 CARLOS LANGLEY DO Feb 13, 2020 20:20
--- NOTE | 2020-02-13 12:53 | Diagnostic Imaging Report ---
EXAMINATION: Head CT without contrast. HISTORY:Dizziness, headache for 3 days COMPARISON STUDIES:MRA brain the brain 07/15/2019, CT head 06/14/2019 TECHNIQUE: Axial images were obtained from the skull base to the vertex. Coronal and sagittal images reconstructed from the axial data. Dose modulation, iterative reconstruction, and/or weight based adjustment of the mA/kV was utilized to reduce the radiation dose to as low as reasonably achievable. FINDINGS: Scalp/skull: No abnormalities. Extra-axial spaces: No masses. No fluid collections. Brain sulci: Appropriate for patient's age. Ventricles: Normal in size and configuration. No hydrocephalus. Parenchyma: No masses, hemorrhage, acute or chronic cortical vascular insults. Sellar/suprasellar region: No abnormalities. Craniocervical junction: Patent foramen magnum. No Chiari one malformation. Incidental findings: Atherosclerotic calcifications in the carotid siphons. IMPRESSION: No intracranial abnormalities. Signed by: Dr. Mayra Olson M.D. on 02/13/2020 1:42 PM
[2020-02-13 13:06] LABS: CLARITY,URINE CLEAR (CLEAR); COLOR,URINE COLORLESS (YELLOW)
[2020-02-13 13:07] LABS: BILIRUBIN,URINE NEGATIVE (NEGATIVE); KETONES,URINE NEGATIVE (NEGATIVE); LEUKOCYTE ESTERASE ,URINE SMALL (NEGATIVE); NITRITE,URINE NEGATIVE (NEGATIVE); PROTEIN,URINE DIPSTICK NEGATIVE (NEGATIVE); URINE UROBILINOGEN 0.2 mg/dL (0.2 - 1)
[2020-02-13 13:11] LABS: ALANINE AMINOTRANSFERASE 21 IU/L (0-55); ALBUMIN 3.9 g/dL (3.5-5.0); ALBUMIN/GLOBULIN RATIO 1.2 (0.8-2.0); ALKALINE PHOSPHATASE 74 IU/L (40-150); ANION GAP 10.9 mmol/L (8-16); BLOOD UREA NITROGEN 17 mg/dL (7-26); BUN/CREATININE RATIO 19 (6-25); CALCIUM 9.2 mg/dL (8.4-10.2); CARBON DIOXIDE 28 mmol/L (22-29); CHLORIDE 104 mmol/L (98-107); CREATINE KINASE 44 IU/L (29-168); CREATININE, SERUM 0.91 mg/dL (0.57-1.11); EST GLOMERULAR FILTRATION RATE > 60 ML/MIN (60-); GLUCOSE 91 mg/dL (74-118); POTASSIUM 3.9 mmol/L (3.5-5.1); SODIUM 139 mmol/L (136-145)
[2020-02-13 13:33] LABS: BACTERIA,URINE MANY /HPF; EPITHELIAL CELLS,URINE MODERATE /LPF; RBC,URINE 0-5 /HPF (0-5); WBC,URINE (MAN) 0-5 /HPF (0-5)
--- NOTE | 2020-02-13 18:09 | Diagnostic Imaging Report ---
History:Headache, dizziness, Comparison studies: MRA of the head and neck 07/22/2019 Technique: Axial images were obtained from the thoracic inlet. Coronal and sagittal images reconstructed from the axial data. Dose modulation, iterative reconstruction, and/or weight based adjustment of the mA/kV was utilized to reduce the radiation dose to as low as reasonably achievable. Intravenous contrast: 100 cc of Omnipaque 300. Findings: Aortic arch and major vessels: Patent. No abnormalities. Common carotid arteries: Patent. No abnormalities. Right internal carotid artery: Patent. No abnormalities. Left internal carotid artery: Patent. No abnormalities. Right vertebral artery: Patent. No abnormalities. Left vertebral artery: Patent. No abnormalities. Basilar artery: Patent. No abnormalities. Posterior cerebral arteries: Patent. No abnormalities. 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 Acom: Patent. Pcoms: Hypoplastic right. Left RED HAT ENGINEER origin. Vertebral arteries: Left dominant. And central findings: 1 cm hypodense nodule within the left thyroid lobe does not meet criteria for dedicated imaging follow-up. Prior ACDF of C5-C7. IMPRESSION: Cervical CTA: 1. Normal arterial vasculature. Intracranial CTA: 1. No large branch vessel occlusion, hemodynamically significant stenosis, or aneurysm. 2. Anatomic variants as described above. Signed by: DR Chapin Huertas M.D. on 02/14/2020 12:06 AM
[2020-02-13] MEDS ORDERED: SODIUM CHLORIDE 0.9% 100 ML ONE (18:15)
[2020-02-13] MEDS ORDERED: IOPAMIDOL 370 MG/ML 200 ML INFUS..BTL INJ ONE (18:15)
== END 2020-02-13 20:46 | disposition home or self-care (01) ==
LOC: ER 11:54
DX: R42 Dizziness and giddiness (principal); I10 Essential (primary) hypertension; Z85.038 Personal history of other malignant neoplasm of large intestine
CPT/HCPCS: 36415; 70450; 70496; 70498; 80053; 81001; 82550; 82553; 84484; 85025; 93005; 99284; J7050; J8597; Q9967